=== PATIENT | male | born 1990 | race Caucasian/White ===

== ENCOUNTER 2017-11-23 09:13 | Emergency (ER) | payer MEDICARE ==
[~2017-11-23] VITALS: Ht 170.2 cm; Wt 116.8 kg
[2017-11-23 09:17] VITALS: Ht 170.2 cm; Wt 116.8 kg
[2017-11-23] MEDS ORDERED: TRAZODONE HCL50 MG PO (09:18)
[2017-11-23] MEDS ORDERED: OMEPRAZOLE20 M1 PO (09:18)
[2017-11-23] MEDS ORDERED: TORADOL10 MG PO (11:03)
[2017-11-23 11:35] VITALS: BP 123/68
== END 2017-11-23 11:35 | disposition home or self-care (01) ==
LOC: D.ER 09:13 → D.LDO 09:13 → D.ER 11:35
DX: M79.671 Pain in right foot (principal); M21.42 Flat foot [pes planus] (acquired), left foot; M21.41 Flat foot [pes planus] (acquired), right foot; K21.9 Gastro-esophageal reflux disease without esophagitis; F17.200 Nicotine dependence, unspecified, uncomplicated

== ENCOUNTER 2018-02-02 22:18 | Emergency (ER) | payer MEDICARE ==
[~2018-02-02] VITALS: Ht 170.2 cm; Wt 113.6 kg
[~2018-02-02 22:18] MED LIST: OMEPRAZOLE20 M1 PO; TORADOL10 MG PO; TRAZODONE HCL50 MG PO
[2018-02-02 22:49] VITALS: Ht 170.2 cm; Wt 113.6 kg
[2018-02-02 23:23] LABS: BASOPHILS 0.3 % (0-2); EOSINOPHILS 0.1 % (0-7); HEMATOCRIT 45.9 % (42.0-54.0); HEMOGLOBIN 16.8 g/dL (13.5-17.5); IMMATURE GRANULOCYTES 0.1 % (0-5); LYMPHOCYTES 21.4 % (15-50); MCH 30.1 pg (26.0-34.0); MCHC 36.6 g/dL (31.0-37.0); MCV 82.3 fL (80.0-100.0); MEAN PLATELET VOLUME 10.7 fL (7.4-10.4); MONOCYTES 6.9 % (2-11); NEUTROPHILS 71.2 % (40-80); PLATELET COUNT 284 10x3/uL (130-400); RBC 5.58 10x6/uL (4.20-6.10); RDW 13.1 % (11.5-14.5); WBC 7.4 10x3/uL (4.8-10.8)
[2018-02-02 23:50] LABS: ALBUMIN 4.3 g/dL (3.4-5.0); ANION GAP 13.7 mmol/L (8-16); BILIRUBIN - TOTAL 0.55 mg/dL (0.2-1.3); CALCIUM 9.6 mg/dL (8.5-10.1); CARBON DIOXIDE 30.1 mmol/L (21.0-32.0); CREATININE - SERUM 2.5 mg/dL (0.6-1.3); POTASSIUM - SERUM 3.8 mmol/L (3.5-5.1); PROTEIN - SERUM 8.4 g/dL (6.4-8.2)
[2018-02-03] MEDS ORDERED: ZOFRAN4 MG PO (00:55)
[2018-02-03 01:07] VITALS: BP 132/92
== END 2018-02-03 01:07 | disposition home or self-care (01) ==
LOC: D.ER 22:18
PROVIDERS: Emergency Medicine
DX: K52.9 Noninfective gastroenteritis and colitis, unspecified (principal); F17.200 Nicotine dependence, unspecified, uncomplicated